=== PATIENT | male | born 1965 | race Hispanic/Latino ===

== ENCOUNTER 2024-03-11 20:04 | Inpatient (IN) | payer OTHER ==
[~2024-03-11] VITALS: Ht 170.2 cm; Wt 78.0 kg
[2024-03-11] MEDS: NITROGLYCERIN 0.4 MG SL TAB SL PRN (20:16)
[2024-03-11] MEDS: NITROGLYCERIN 0.4 MG SL TAB SL ONE (20:17)
[2024-03-11 20:20] LABS: BASOPHILS # (AUTO) 0.08 K/uL (0.00-0.20); BASOPHILS % (AUTO) 0.7 % (0.0-5.0); EOSINOPHILS # (AUTO) 0.68 K/uL (0.00-0.70); EOSINOPHILS % (AUTO) 6.3 % (0.0-8.0); HEMATOCRIT 35.6 % (42-54); IMMATURE GRANULOCYTE ABSOLUTE 0.04 K/uL (0-1); LYMPHOCYTES # (AUTO) 1.5 K/uL (1.0-4.8); LYMPHOCYTES % (AUTO) 13.4 % (21.0-51.0); MEAN CORPUSCULAR HGB CONC 31.7 g/dL (32.0-36.0); MEAN CORPUSCULAR VOLUME 88.3 fL (79-99); MONOCYTES # (AUTO) 0.7 K/uL (0.1-1.0); MONOCYTES % (AUTO) 6.8 % (3.0-13.0); NEUTROPHILS # (AUTO) 7.8 K/uL (1.8-7.7); NEUTROPHILS % (AUTO) 72.4 % (40.0-77.0); PLATELET COUNT (AUTO) 319 K/uL (130-400); RED BLOOD CELL COUNT(AUTO) 4.03 MIL/uL (4.50-6.20); RED CELL DISTRIBUTION WIDTH 14.9 % (11.0-15.5); WHITE BLOOD COUNT (AUTO) 10.8 K/uL (4.8-10.8)
[2024-03-11] MEDS: CLOPIDOGREL 300MG TAB PO ONE (20:29)
[2024-03-11 20:30] LABS: INR <= 0.93 (0.85-1.15)
[2024-03-11] MEDS: HEPARIN 5,000 UNIT VIAL IV ONE (20:30)
[2024-03-11] MEDS: ASPIRIN 325MG TAB PO ONE (20:30)
[2024-03-11 20:31] LABS: CREATININE 0.9 mg/dL (0.5-1.3); PARTIAL THROMBOPLASTIN TIME 27.8 SEC (26.3-35.5); POTASSIUM 3.6 mmol/L (3.5-5.1)
[2024-03-11] MEDS: HEPARIN 25,000 UNITS/250ML D5W 250 ML IV SCH (20:36)
[2024-03-11 20:43] LABS: ALBUMIN 3.4 g/dL (3.5-5.0); BILIRUBIN,TOTAL 0.2 mg/dL (0.2-1.0); TOTAL PROTEIN, SERUM 7.6 g/dL (6.0-8.3)
[2024-03-11 20:44] LABS: B-TYPE NATRIURETIC PEPTIDE 35 pg/mL (0-100)
[2024-03-11] MEDS ORDERED: ACETAMINOPHEN 325 MG TAB PO PRN ×2 (22:30)
[2024-03-11] MEDS ORDERED: ONDANSETRON 4MG INJ IV PRN (22:30)
[2024-03-11] MEDS ORDERED: NITROGLYCERIN 0.4 MG SL TAB SL PRN (22:30)
[2024-03-11] MEDS ORDERED: DEXTROSE 50%-WATER 50 ML DISP.SYRIN IV PRN (23:00)
[2024-03-11] MEDS ORDERED: GLUCAGON 1MG KIT 1 MG ML IM PRN (23:00)
[2024-03-11] MEDS ORDERED: MAGNESIUM 2GM PREMIX 50ML 50 ML IV PRN (23:00)
[2024-03-11] MEDS: POTASSIUM CHLORIDE 20MEQ/100ML 100 ML IV PRN (23:13)
[2024-03-12 00:40] VITALS: BP 121/68; PULSE 66; RESP 18; O2SAT 98
[2024-03-12] MEDS ORDERED: AEC81 PO (00:57)
[2024-03-12] MEDS ORDERED: ESOM20CA60 PO (00:59)
[2024-03-12] MEDS ORDERED: MULT-1259 PO (00:59)
[2024-03-12] MEDS ORDERED: [UNRECOGNIZED DRUG - OTHER] TP (01:03)
[2024-03-12 02:12] LABS: EOSINOPHILS # (AUTO) 0.63 K/uL (0.00-0.70); EOSINOPHILS % (AUTO) 6.4 % (0.0-8.0); HEMATOCRIT 31.9 % (42-54); IMMATURE GRANULOCYTE ABSOLUTE 0.03 K/uL (0-1); LYMPHOCYTES # (AUTO) 1.9 K/uL (1.0-4.8); LYMPHOCYTES % (AUTO) 19.1 % (21.0-51.0); MEAN CORPUSCULAR HEMOGLOBIN 28.2 pg (27.0-33.0); MEAN CORPUSCULAR HGB CONC 32.3 g/dL (32.0-36.0); MEAN CORPUSCULAR VOLUME 87.4 fL (79-99); MONOCYTES # (AUTO) 0.7 K/uL (0.1-1.0); NEUTROPHILS # (AUTO) 6.5 K/uL (1.8-7.7); NEUTROPHILS % (AUTO) 66.2 % (40.0-77.0); PLATELET COUNT (AUTO) 274 K/uL (130-400); RED BLOOD CELL COUNT(AUTO) 3.65 MIL/uL (4.50-6.20); RED CELL DISTRIBUTION WIDTH 15.1 % (11.0-15.5); WHITE BLOOD COUNT (AUTO) 9.8 K/uL (4.8-10.8)
[2024-03-12 02:26] LABS: INR <= 0.93 (0.85-1.15)
[2024-03-12 02:27] LABS: HEMOGLOBIN A1C 5.7 % (4.0-6.0); PARTIAL THROMBOPLASTIN TIME 60.4 SEC (26.3-35.5)
[2024-03-12 02:33] LABS: % IRON SATURATION 16.1 % (30-44)
[2024-03-12 02:35] LABS: BILIRUBIN,TOTAL 0.2 mg/dL (0.2-1.0); CREATININE 0.6 mg/dL (0.5-1.3); MAGNESIUM 2.1 mg/dL (1.80-2.40); POTASSIUM 3.6 mmol/L (3.5-5.1); THYROID STIMULATING HORMONE 1.53 uIU/mL (0.36-3.74); TOTAL PROTEIN, SERUM 6.8 g/dL (6.0-8.3)
[2024-03-12 04:23] VITALS: BP 112/59; PULSE 61; RESP 16
[2024-03-12] MEDS: INSULIN HUMULIN R 100 UNIT/ML 3ML SQ SCH (05:29)
[2024-03-12 08:00] VITALS: O2SAT 99
[2024-03-12 08:01] VITALS: BP 94/59; PULSE 58; RESP 17
[2024-03-12] MEDS: ASPIRIN 81 MG EC TAB PO SCH (08:45)
[2024-03-12] MEDS: FAMOTIDINE 20MG VIAL IV SCH (08:45)
[2024-03-12] MEDS: ENOXAPARIN SODIUM 40 MG/0.4 ML SYRINGE SQ SCH (09:00)
[2024-03-12 09:42] LABS: INR <= 0.93 (0.85-1.15)
[2024-03-12 09:44] LABS: PARTIAL THROMBOPLASTIN TIME 60.9 SEC (26.3-35.5)
[2024-03-12 12:00] VITALS: BP 100/54; PULSE 57; RESP 17
== END 2024-03-12 15:25 | disposition left against medical advice (07) | DRG 311 ==
LOC: EDH 20:04 → EDHIP 20:05 → 4AH 03-12 00:28
PROVIDERS: ADMIT Internal Medicine; ATTEND Internal Medicine
DX: I24.9 Acute ischemic heart disease, unspecified (principal); I25.10 Atherosclerotic heart disease of native coronary artery without angina pectoris; D64.9 Anemia, unspecified; E66.01 Morbid (severe) obesity due to excess calories; E11.65 Type 2 diabetes mellitus with hyperglycemia; I35.0 Nonrheumatic aortic (valve) stenosis; I35.8 Other nonrheumatic aortic valve disorders; I45.10 Unspecified right bundle-branch block; Z79.02 Long term (current) use of antithrombotics/antiplatelets; Z95.1 Presence of aortocoronary bypass graft; Z98.84 Bariatric surgery status; Z79.82 Long term (current) use of aspirin; Z79.899 Other long term (current) drug therapy; Z82.49 Family history of ischemic heart disease and other diseases of the circulatory system; Z68.26 Body mass index [BMI] 26.0-26.9, adult
CPT/HCPCS: 36415; 71045; 80053; 80061; 82550; 82948; 83036; 83540; 83550; 83735; 83880; 84443; 84484; 85025; 85610; 85730; 93005; 93306; 96365; 96366; 96375; G0378; J1644; J1650; J3480; J3490